=== PATIENT | male | born 1940 | race Caucasian/White ===

== ENCOUNTER 2018-05-01 13:29 | Emergency (ER) | payer OTHER, BC ==
[2018-05-01 13:37] VITALS: BMI 27.3
--- NOTE | 2018-05-01 15:35 | PDOC ---
History of Present Illness - General Chief Complaint: Pain Stated Complaint: LT FOOT NUMBNESS Time Seen by Provider: 05/01/18 13:54 History Source: Patient Exam Limitations: No Limitations - History of Present Illness Initial Comments: 05/01/18 16:39 77-year-old male presents to ED with complaints of right calf cramping pain. Patient states this morning states he experienced a tingling in his toes with massage symptoms resolve. Patient states pain is worsened with ambulation and denies any redness swelling or radiation of pain. Patient denies recent travel, recent surgery recent injury or decreased range of motion secondary to discomfort. Patient denies history of DVT but states history of multiple myeloma along with recent Levaquin administration by his PCP secondary to URI. Patient states was started on the and completed it 3 days ago. Timing/Duration: 1 week, intermittent Severity: mild Associated Symptoms: reports: loss of appetite Past History - Travel Traveled outside of the country in the last 30 days: No Close contact w/someone who was outside of country & ill: No - Past Medical History Allergies/Adverse Reactions: Allergies Allergy/AdvReac Type Severity Reaction Status Date / Time Penicillins Allergy Unknown Unverified 05/01/18 13:31 Home Medications: Ambulatory Orders Ezetimibe [Zetia] 10 mg PO tablet 08/30/15 Montelukast Sodium 10 mg PO tablet 08/30/15 Ranitidine HCl 300 mg PO capsule 08/30/15 Finasteride 5 mg PO 05/01/18 Losartan Potassium 50 mg PO DAILY 05/01/18 Omeprazole 20 mg PO DAILY 05/01/18 COPD: Yes GI Disorders: Yes (barretts esophgus) HTN: Yes - Surgical History Abdominal Surgery: Yes (hiatial hernia) - Suicide/Smoking/Psychosocial Hx Smoking History: Former smoker Have you smoked in the past 12 months: No Information on smoking cessation initiated: No Hx Alcohol Use: No Drug/Substance Use Hx: No Patient Lives Alone: Yes Lives with/in: lives alone Review of Systems - Review of Systems Able to Perform ROS?: Yes Constitutional: Yes: Loss of Appetite HEENTM: No: Symptoms Reported Respiratory: No: Symptoms reported Cardiac (ROS): No: Symptoms Reported ABD/GI: No: Symptoms Reported : No: Symptoms Reported Musculoskeletal: Yes: Muscle Pain. No: Joint Pain Integumentary: No: Symptoms Reported Neurological: Yes: Tingling *Physical Exam - Vital Signs Last Vital Signs Temp Pulse Resp BP Pulse Ox 97.6 F 101 H 20 165/89 99 05/01/18 13:31 05/01/18 13:31 05/01/18 13:31 05/01/18 13:31 05/01/18 13:31 - Physical Exam General Appearance: Yes: Nourished, Appropriately Dressed. No: Apparent Distress HEENT: negative: Pale Conjunctivae Neck: positive: Supple Respiratory/Chest: positive: Lungs Clear, Normal Breath Sounds. negative: Respiratory Distress, Accessory Muscle Use Cardiovascular: positive: Regular Rhythm, Regular Rate. negative: Murmur Gastrointestinal/Abdominal: positive: Soft. negative: Tenderness Extremity: positive: Normal Capillary Refill, Tender (distal aspect of right calf ) Integumentary: positive: Normal Color, Warm, Moist Neurologic: positive: Motor Strength 5/5. negative: Numbness, Sensory Deficit Moderate Sedation - Procedure Monitoring Vital Signs: Procedure Monitoring Vital Signs Temperature 97.6 F 05/01/18 13:31 Pulse Rate 101 H 05/01/18 13:31 Respiratory Rate 20 05/01/18 13:31 Blood Pressure 165/89 05/01/18 13:31 O2 Sat by Pulse Oximetry (%) 99 05/01/18 13:31 ED Treatment Course - RADIOLOGY Radiology Studies Ordered: Category Date Time Status DUPLEX VASCUL US-1 LEG [US] Stat Ultrasound 05/01/18 13:59 Ordered Medical Decision Making - Medical Decision Making 05/01/18 14:46 CC: rt calf pain x 1 week worse with ambulation Exam: - [place] test, mild tenderness with deep palpitation to distal aspect gastronemius muscle Plan: duplex to r/o dvt *DC/Admit/Observation/Transfer Diagnosis at time of Disposition: Right calf pain - Discharge Dispostion Disposition: HOME Condition at time of disposition: Good - Referrals Referrals: Micky Salas MD [Primary Care Provider] - - Patient Instructions Printed Discharge Instructions: Eating Healthfully: Tips to Make It Easier, DI for Calf Muscle Strain Additional Instructions: Please follow-up with your physician and read over information regards to muscle strain and proper eating. If symptoms worsen or continue over the next 5-7 days, please return to the ED - Post Discharge Activity
[2018-05-01 16:07] VITALS: BP 131/75; PULSE 75; TEMP 98.3
== END 2018-05-01 16:06 | disposition home or self-care (01) ==
LOC: SUPCPDRO 13:29 → JER 13:29
DX: S86.111A Strain of other muscle(s) and tendon(s) of posterior muscle group at lower leg level, right leg, initial encounter (principal); X58.XXXA Exposure to other specified factors, initial encounter; Y93.89 Activity, other specified; Y92.89 Other specified places as the place of occurrence of the external cause; Y99.8 Other external cause status; I10 Essential (primary) hypertension; J44.9 Chronic obstructive pulmonary disease, unspecified
CPT/HCPCS: 93971-TC; 99282-25